=== PATIENT | female | born 1945 | race Caucasian/White ===

== ENCOUNTER 2019-01-16 11:10 | Outpatient (CLI) | payer OTHER | END 2019-01-16 13:46 | disposition home or self-care (01) | LOC: TOM 11:10 | DX: K63.5 Polyp of colon (principal); Z80.0 Family history of malignant neoplasm of digestive organs; Z85.038 Personal history of other malignant neoplasm of large intestine; R31.9 Hematuria, unspecified; Z86.010 Personal history of colon polyps; K57.30 Diverticulosis of large intestine without perforation or abscess without bleeding; K65.8 Other peritonitis ==